=== PATIENT | female | born 2000 | race Caucasian/White ===

== ENCOUNTER → 2020-06-20 15:43 | Outpatient (CLI) | payer OTHER, SELFPAY ==
[2020-06-23 08:56] LABS: Rubella IgG Reactive (Nonreactive)
[2020-06-23 20:57] LABS: Hepatitis A IgM Antibody Negative (Negative); Rubeola IgG Ab > 300.0 AU/mL (Immune >16.4); V-Zoster IgG (Immunity) 296 index (Immune >165)
[2020-06-24 11:33] LABS: Hepatitis B Surface Antibody Non-Reactive
== END ==
PROVIDERS: Visit Provider Family Medicine
DX: Z01.84 Encounter for antibody response examination (principal)
CPT/HCPCS: 36415; 86706; 86709; 86735; 86762; 86765; 86787